=== PATIENT | female | born 1955 | race Caucasian/White ===

== ENCOUNTER 2024-11-25 12:21 | Emergency (ER) | payer MEDICARE, BC ==
[2024-11-25] MEDS: Aspirin 81 MG Tab.Chew PO ONE (12:45)
[2024-11-25] MEDS: Metoprolol Tartrate 5 MG/5 ML SDV IVPUSH ONE ×3 (12:46→13:20)
[2024-11-25] MEDS: Sodium Chloride 0.9% 1,000 ML IV ONE ×2 (12:47→13:38)
[2024-11-25 13:00] LABS: BASOPHILS ABSOLUTE AUTO 0.1 x10-3/uL (0.0-0.1); BASOPHILS PERCENT AUTO 0.6 % (0.2-1.5); EOSINOPHILS PERCENT AUTO 0.2 % (0.6-8.1); HEMATOCRIT 40.1 % (34.2-48.2); HEMOGLOBIN 13.5 g/dL (11.4-15.5); LYMPHOCYTES ABSOLUTE AUTO 1.6 x10-3/uL (1.0-4.4); LYMPHOCYTES PERCENT AUTO 12.1 % (18.4-52.1); MEAN CORPUSCULAR HEMOGLOBIN 29.5 pg (23.9-33.9); MEAN CORPUSCULAR HGB CONC 33.5 g/dL (31.9-34.8); MEAN CORPUSCULAR VOLUME 87.8 fL (76.7-100.5); MEAN PLATELET VOLUME 7.9 fL (7.1-12.4); MONOCYTES ABSOLUTE AUTO 1.3 x10-3/uL (0.3-1.0); NEUTROPHILS ABSOLUTE AUTO 10.4 x10-3/uL (1.5-6.3); NEUTROPHILS PERCENT AUTO 77.1 % (30.8-76.2); PLATELET COUNT,PLT 218 x10(3)uL (151-488); RED BLOOD CELL COUNT 4.57 x10(6)uL (3.60-5.20); RED CELL DISTRIBUTION WIDTH 13.3 % (12.3-16.5); WHITE BLOOD CELL COUNT,WBC 13.5 x10-3/uL (3.0-10.3)
[2024-11-25 13:01] LABS: BLOOD UREA NITROGEN,BUN 17 mg/dL (7-18); BUN/CREATININE RATIO 18.9 (9-20); CALCIUM 8.9 mg/dL (8.6-10.2); CARBON DIOXIDE,CO2 26 mmol/L (21-32); CHLORIDE,CL 105 mmol/L (100-110); CREATININE 0.9 mg/dL (0.55-1.02); ESTIMATED GFR 69 mL/min (>60); GLUCOSE RANDOM 125 mg/dL (80-116); SODIUM,NA 141 mmol/L (135-145)
[2024-11-25 13:07] LABS: A/G RATIO 0.9; ALANINE AMINOTRANSFERASE,ALT 54 U/L (12-36); ALBUMIN 3.2 g/dL (3.2-4.6); ALKALINE PHOSPHATASE 76 IU/L (56-112); ASPARTATE AMNIOTRANSFERASE,AST 20 IU/L (5-25); BILIRUBIN TOTAL 0.9 mg/dL (0.1-1.3); PROTEIN TOTAL,TP 6.9 g/dL (6.0-8.0)
[2024-11-25 13:16] LABS: TROPONIN I 5.9 pg/mL (4.0-60.3)
[2024-11-25 13:28] LABS: D-DIMER QUANTITATIVE 0.59 mg/LFEU (0.0-0.59); INR 1.07 (1.00-1.24)
[2024-11-25] MEDS: Adenosine 6 MG/2 ML SDV IVPUSH ONE ×2 (13:40→13:44)
[2024-11-25] MEDS: Metoprolol Tartrate 5 MG/5 ML SDV ONE (14:17)
[2024-11-25] MEDS: Metoprolol Tartrate 5 MG in Sodium Chloride 0.9% 50 ML IV ONE (17:44)
== END 2024-11-25 14:54 ==
LOC: FB.ED 12:21
DX: R00.0 Tachycardia, unspecified (principal); Z88.6 Allergy status to analgesic agent; Z79.899 Other long term (current) drug therapy
CPT/HCPCS: 36415; 71045; 80053; 83605; 83880; 84484; 85025; 85379; 85610; 85730; 87428; 92960; 93005; 93010; 96361; 96374; 96375; 96376; 99285; A9270; J0153; J3490; J7030